=== PATIENT | female | born 1950 | race Caucasian/White ===

== ENCOUNTER 2018-01-04 02:19 | Inpatient (IN) ==
--- NOTE | 2018-01-04 03:00 | ED ---
HPI General Chief complaint: Head Injury Stated complaint: Transfer [facility] Time Seen by Provider: 01/04/18 02:23 Source: patient Mode of arrival: EMS Limitations: no limitations History of Present Illness HPI Narrative: The patient is a 67-year-old female who presents to the emergency department from [facility] as a trauma transfer. The patient is currently living in a rehabilitation center, apparently rolled out of bed earlier tonight. The patient was seen in the emergency department and noted to have an intraparenchymal hemorrhage and a small subarachnoid hemorrhage. The patient was on Coumadin and was administered [facility] at the hospital. The patient does complain of right periorbital swelling with mild headache as well as right wrist pain. The patient does have a history of poor vision secondary to a previous stroke per her report and she states she is unable to drive and has difficulty reading secondary to her poor vision, which is chronic. She does complain of a mild headache and right wrist pain but denies any neck pain, chest pain, shortness breath, nausea, vomiting, or abdominal pain.The patient is a dialysis patient and goes Mondays, Wednesdays, and Fridays. The patient had dialysis on Monday.The patient is a dialysis patient and goes Mondays, Wednesdays, and Fridays. The patient had dialysis on Monday. Related Data Home Medications Medication Instructions Recorded Confirmed carvedilol [Coreg] 25 mg PO BID 01/04/18 01/04/18 escitalopram oxalate [Lexapro] 20 mg PO DAILY 01/04/18 01/04/18 gabapentin [Neurontin] 400 mg PO BID 01/04/18 01/04/18 levothyroxine [Synthroid] 150 mcg PO DAILY 01/04/18 01/04/18 megestrol [Megace ES] 625 mg PO DAILY 01/04/18 01/04/18 omeprazole magnesium [Prilosec] 40 mg PO DAILY 01/04/18 01/04/18 sevelamer carbonate [Renvela] 800 mg PO TID 01/04/18 01/04/18 torsemide [Demadex] 20 mg PO DAILY 01/04/18 01/04/18 Allergies Allergy/AdvReac Type Severity Reaction Status Date / Time atorvastatin [From Lipitor] Allergy Rash, Verified 01/04/18 02:24 Generalized cefuroxime [From Ceftin] Allergy Rash, Verified 01/04/18 02:24 Generalized Sulfa (Sulfonamide Allergy Rash, Verified 01/04/18 02:24 Antibiotics) Generalized Review of Systems ROS: all other systems reviewed are negative [facility] Medical History Medical History CAD (coronary artery disease) (Acute) COPD (chronic obstructive pulmonary disease) (Acute) CVA (cerebral vascular accident) (Acute) Diabetes mellitus (Acute) Hypertension (Acute) Hypothyroidism (Acute) Surgical History Surgical History Hx of CABG (Acute) Stented coronary artery (Acute) Social History Social History Second Hand Smoke Exposure: No Smoking Status: Never smoker How Often Do You Have a Drink Containing Alcohol: Never Recent Travel in [facility] within the Last 8 Weeks: No Recent Out of Country Travel within the Last 8 Weeks: No Immunization History Tetanus Immunization: >5 Years Hx Influenza Vaccine This Season: No Exam Narrative Exam Narrative: GENERAL: Awake, alert, pleasant 67-year-old female who appears her stated age is in no acute respiratory distress. SKIN: Focused skin assessment warm/dry. Large skin tear to the proximal right forearm. HEAD: Large right periorbital hematoma with ecchymosis. EYES: Pupils are 2 mm bilateral. Patient has difficulty seeing fingers at a distance of 2 feet from both eyes. EOMs are intact. ENT: No nasal bleeding or discharge. Mucous membranes pink and moist. NECK: Trachea midline. No JVD. No tenderness of the cervical vertebrae. CARDIOVASCULAR: Regular rate and rhythm. No murmur appreciated. Well-healed midline scar. RESPIRATORY: No accessory muscle use. Clear to auscultation. Breath sounds equal bilaterally. GASTROINTESTINAL: Abdomen soft, non-tender, nondistended. Back: No tenderness over the thoracic or lumbar vertebrae. MUSCULOSKELETAL: Right wrist tenderness with limited range of motion. Swelling around the right wrist noted. Left forearm AV fistula with positive thrill. Patient is able to flex the hips and knees bilaterally. NEUROLOGICAL: Awake and alert. No obvious cranial nerve deficits. Motor grossly within normal limits. Normal speech. Patient is oriented to person, place, month, year, and tool liaison. PSYCHIATRIC: Appropriate mood and affect; insight and judgment normal. Course Initial Documented Vital Signs Temperature 98.2 F 01/04/18 02:26 Pulse Rate 78 01/04/18 02:26 Blood Pressure 187/79 H 01/04/18 02:26 Pulse Oximetry 99 01/04/18 02:26 Last Documented Vital Signs Temperature 98.2 F 01/04/18 02:26 Pulse Rate 78 01/04/18 02:26 Blood Pressure 187/79 H 01/04/18 02:26 Pulse Oximetry 99 01/04/18 02:26 Medical Decision Making MDM Narrative Medical decision making narrative: deformity and tenderness.IV had been established at [facility] prior to arrival. The patient Arty received [facility]. I did evaluate the patient's abrasion to the right forearm, she had a nonadherent dressing applied. An x-ray of the right wrist was obtained secondary to deformity of the right wrist with tenderness. I reviewed the paperwork from [facility], the patient had a CT the brain which revealed punctate focus of intraparenchymal hemorrhage within the left frontal lobe with associated small amount of subarachnoid hemorrhage in the left frontal lobe. Diffuse cerebral atrophy present consistent with the patient's age. Patchy hypoattenuation of the deep white matter which is nonspecific, but most likely owing to chronic small vessel ischemic change in a patient of this age group. Small amount of subarachnoid hemorrhage along the sylvian fissure on the left is present. Suggestive small amount of hemorrhage along the body of the corpus callosum/body of the right lateral ventricle. CBC revealed white count 6.2, hemoglobin 12.9, hematocrit 38.2, platelet count of 265 PT 24.4, INR 2.2, APTT 43.6 Sodium 137, potassium 4.3, chloride 98, CO2 26, anion gap 18, BUN 20, creatinine 3.28, glucose 266, calcium 9.2 X-ray of the right wrist reveals a fracture with displacement. The patient was placed in a sugar tong splint. I discussed the patient with the trauma surgeon who agrees with admission to the intensive surgical care unit. A routine consultation for orthopedics will be placed. The trauma surgeon stated the patient could have clear liquids, she is a dialysis patient, therefore, IV fluids are KVO. Medical Screen Exam Complete: Yes Emergency Medical Condition: Yes Imaging Data Radiologist's impression: Chest X-Ray 01/04/18 02:44 CONCLUSION: No acute cardiopulmonary process. Wrist X-Ray 01/04/18 02:44 CONCLUSION: Distal radial and ulnar fractures. Discharge Plan Discharge Disposition Patient Disposition: 30 Still Patient Discharge Condition Condition: Stable Discharge Details Diagnosis: Traumatic cerebral intraparenchymal hemorrhage, Subarachnoid hemorrhage, Closed fracture of right wrist Physicians Team ED Provider: Curtis Cuevas Primary Care Provider: UNKNOWN, Rxs /Orders / Referrals /Forms Prescriptions: No Action carvedilol [Coreg] 25 mg Tablet 25 mg PO BID RF: 0 torsemide [Demadex] 20 mg Tablet 20 mg PO DAILY RF: 0 gabapentin [Neurontin] 800 mg Tablet 400 mg PO BID RF: 0 levothyroxine [Synthroid] 150 mcg Tablet 150 mcg PO DAILY RF: 0 escitalopram oxalate [Lexapro] 5 mg Tablet 20 mg PO DAILY RF: 0 megestrol [Megace ES] 625 mg/5 mL Suspension 625 mg PO DAILY RF: 0 sevelamer carbonate [Renvela] 800 mg Tablet 800 mg PO TID RF: 0 omeprazole magnesium [Prilosec] 10 mg Susp,Delayed Release For Recon 40 mg PO DAILY RF: 0 Status ED Status: Pending Admission
--- NOTE | 2018-01-04 03:23 | XR ---
EXAM DATE: 01/04/2018 3:07 AM EDT AGE/SEX: 67 years / Female INDICATIONS: Chest pain from trauma as patient fell out of bed tonight. Trauma transfer. CLINICAL DATA: This is the patient's initial encounter. Patient reports that signs and symptoms have been present for 1 day and indicates a pain score of 8/10. MEDICAL/SURGICAL HISTORY: Hypertension. Diabetes. Myocardial infarction. CABG. COMPARISON: No prior exams available for comparison. FINDINGS: A single AP view of the chest demonstrates the lungs to be symmetrically aerated without evidence of mass, infiltrate or effusion. The cardiomediastinal contours are unremarkable. The patient is statu s post sternotomy. Osseous structures are intact. CONCLUSION: No acute cardiopulmonary process. Electronically signed by: Rell Cisneros MD 01/04/2018 3:22 AM EDT
--- NOTE | 2018-01-04 03:24 | XR ---
EXAM DATE: 01/04/2018 3:10 AM EDT AGE/SEX: 67 years / Female INDICATIONS: Right wrist pain from a fall trauma. Trauma transfer. CLINICAL DATA: This is the patient's initial encounter. Patient reports that signs and symptoms have been present for 1 day and indicates a pain score of 10/10. MEDICAL/SURGICAL HISTORY: Hypertension. Diabetes. Myocardial infarction. CABG. COMPARISON: No prior exams available for comparison. FINDINGS: There is fracturing at the distal radius with dorsal displacement and angulation of the distal radial fragment. There also appears to be a fracture through the distal medial aspect of the ulna. The bone s are osteopenic. There is soft tissue swelling. CONCLUSION: Distal radial and ulnar fractures. Electronically signed by: Rell Cisneros MD 01/04/2018 3:23 AM EDT
[2018-01-04] MEDS ORDERED: Morphine Inj 4 MG/ML Vial IV.PUSH ONE (03:29)
[2018-01-04] MEDS ORDERED: Morphine Inj 4 MG/ML Vial IV.PUSH PRN ×2 (06:18→07:15)
[2018-01-04] MEDS ORDERED: Acetaminophen 325 MG Tablet PO PRN ×2 (06:25→21:09)
[2018-01-04] MEDS ORDERED: Post-op Orders (for Pharmacy) OTHER ONE (07:15)
[2018-01-04] MEDS ORDERED: Naloxone Inj 0.4 MG/ML Vial IV.PUSH PRN (07:15)
[2018-01-04] MEDS ORDERED: Bisacodyl 10 MG Supp RECTAL PRN (07:15)
--- NOTE | 2018-01-04 07:35 | P.CONOP ---
[facility] Orthopedics Consult Note - [facility] Consult date: 01/04/18 Chief complaint: Subarachnoid & Intraparenchymal Hem, Rt Wrist Fx Narrative: Caryl is a 67-year-old female. She lives in [place] and and lives in a adult living facility. She rolled out of bed earlier tonight. She hit her head and her right wrist. She was initially taken to [facility]. She was subsequently transferred to [facility]. She is found to have a subarachnoid hemorrhage and intraparenchymal hemorrhage. She does not clearly recall the fall. She complains of pain around her face and her right wrist. She states that she had a fall approximately 2 months ago resulting in right distal radius fracture. She has been seeing Dr. Jay in [place]. She has been treated nonsurgically. Her wrist pain is worse with movement and improved with rest. She also has renal failure and is on dialysis. Review of Systems Patient denies fevers, chills, weight loss, headache, visual changes, hearing loss, chest pain, palpitations, shortness of breath, nausea, vomiting, no urinary changes, diarrhea, bowel changes, neck pain, back pain, skin rashes, weakness of extremities, easy bleeding, enlarged lymph nodes, numbness of extremities, anxiety, or depression. All other systems reviewed negative except as stated in [facility] - History History Provided By: Patient - Medical History Medical History: Medical History (Last Updated 01/04/18 @ 02:29 by Hemant Romeo) CAD (coronary artery disease) COPD (chronic obstructive pulmonary disease) CVA (cerebral vascular accident) Diabetes mellitus Hypertension Hypothyroidism - Surgical History Surgical History: Surgical History (Last Updated 01/04/18 @ 02:29 by Heamnt Romeo) Hx of CABG Stented coronary artery - Tobacco History Second Hand Smoke Exposure: No Smoking Status: Never smoker - Alcohol History How Often Do You Have a Drink Containing Alcohol: Never - Travel History Recent Travel in the [place] Within the Last 8 Weeks: No Recent Travel Out of the Country Within the Last 8 Weeks: No - Immunization History Tetanus Immunization: >5 Years Hx Influenza Vaccine This Season: No Medications and Allergies Active Medications: Active Medications Acetaminophen (Tylenol) 650 mg PO Q6H PRN PRN Reason: TEMPERATURE > 101 F Al Hydroxide/Mg Hydroxide (Milk Of Magnesia Liq) 30 ml PO Q12H PRN PRN Reason: Mild Constipation Bisacodyl (Dulcolax Supp) 10 mg RECTAL DAILY PRN PRN Reason: SEVERE CONSITIPATION Enalaprilat (Vasotec Inj) 1.25 mg IV.PUSH Q8H PRN PRN Reason: Blood pressure 180/95 Sodium Chloride (Ns Inj) 1,000 mls @ 100 mls/hr IV.CONT .Q10H DARRON Lactulose (Lactulose Liq) 30 ml PO DAILY PRN PRN Reason: SEVERE CONSITIPATION Miscellaneous Information (Misc Post-Op Orders (For Pharmacy)) 0 each OTHER STAT ONE Stop: 01/04/18 07:16 Morphine Sulfate (Morphine Inj) 4 mg IV.PUSH Q4H PRN PRN Reason: BREAKTHROUGH PAIN Morphine Sulfate (Morphine Inj) 2 mg IV.PUSH Q3H PRN PRN Reason: PAIN 6-10;IF UNABLE TO TAKE PO Naloxone HCl (Narcan Inj) 0.4 mg IV.PUSH UNSCH PRN PRN Reason: SEE LABEL COMMENTS Ondansetron HCl (Zofran Inj) 4 mg IV.PUSH Q6H PRN PRN Reason: NAUSEA OR VOMITING Ondansetron HCl (Zofran Inj) 4 mg IV.PUSH Q6H PRN PRN Reason: NAUSEA OR VOMITING Oxycodone HCl (Roxicodone) 10 mg PO Q4H PRN PRN Reason: Pain 6-10 Oxycodone HCl (Roxicodone) 5 mg PO Q4H PRN PRN Reason: Pain 1-5 Oxycodone/Acetaminophen (Percocet 5/325 Mg) 1 tab PO Q6H PRN PRN Reason: PAIN SCALE 3 TO 5 Pantoprazole Sodium (Protonix Inj) 40 mg IV.PUSH Q24H DARRON Pantoprazole Sodium (Protonix) 40 mg PO DAILY DARRON Senna/Docusate Sodium ([place]-Colace) 1 tab PO BID DARRON Senna/Docusate Sodium ([place]-Colace) 1 tab PO BID DARRON Sennosides (Senokot) 17.2 mg PO Q12H PRN PRN Reason: Moderate Constipation Sodium Chloride (Ns Flush) 2 ml IV.FLUSH UNSCH PRN PRN Reason: FLUSH AFTER USING IV ACCESS Allergies Allergy/AdvReac Type Severity Reaction Status Date / Time atorvastatin [From Lipitor] Allergy Rash, Verified 01/04/18 02:24 Generalized cefuroxime [From Ceftin] Allergy Rash, Verified 01/04/18 02:24 Generalized Sulfa (Sulfonamide Allergy Rash, Verified 01/04/18 02:24 Antibiotics) Generalized Home Medications Medication Instructions Recorded Confirmed Type carvedilol [Coreg] 25 mg PO BID 01/04/18 01/04/18 History escitalopram oxalate [Lexapro] 20 mg PO DAILY 01/04/18 01/04/18 History gabapentin [Neurontin] 400 mg PO BID 01/04/18 01/04/18 History levothyroxine [Synthroid] 150 mcg PO DAILY 01/04/18 01/04/18 History megestrol [Megace ES] 625 mg PO DAILY 01/04/18 01/04/18 History omeprazole magnesium [Prilosec] 40 mg PO DAILY 01/04/18 01/04/18 History sevelamer carbonate [Renvela] 800 mg PO TID 01/04/18 01/04/18 History torsemide [Demadex] 20 mg PO DAILY 01/04/18 01/04/18 History Exam Vital signs: Vital Signs 01/04/18 02:26 01/04/18 03:30 01/04/18 04:30 Temperature 98.2 F Pulse Rate 78 78 86 Respiratory Rate 18 18 Blood Pressure 187/79 H 175/78 H 201/90 H Pulse Oximetry 99 96 01/04/18 05:30 01/04/18 05:58 Temperature Pulse Rate 76 80 Respiratory Rate 18 16 Blood Pressure 182/80 H 151/66 H Pulse Oximetry 96 98 Intake & Output 01/03/18 01/04/18 01/04/18 18:59 06:59 18:59 Weight 80 kg Narrative: Caryl is a pleasant 67-year-old female. She is awake and alert. She appears well-developed well-nourished. General: Awake and alert. No acute distress. Appears well-developed well- nourished Head: Patient has a large contusion around her right eye. Pupils are equal Neck: Soft, nontender, trachea midline Abdomen: Soft, nondistended Examination of right arm reveals no pain with shoulder she has mild tenderness over her distal radius. Skin is intact. Radial pulses palpable. Sensation is intact in radial, ulnar, and median nerve distributions. She has pain with any wrist motion. She has mild swelling of her wrist and fingers. Examination of left arm reveals no pain or deformity with shoulder, elbow, or wrist motion. Skin is intact. Radial pulse is palpable. Normal capillary refill in fingers. Sensation is intact in radial, ulnar, and median nerve distributions. Classified Ad Taker strength is +5 bilaterally. No lymphadenopathy noted. Examination of bilateral lower extremities reveals no pain or deformity with hip , knee, or ankle motion. Skin is intact. Sensation is intact in both feet. Dorsalis pedis pulses are palpable. Normal capillary refill and feet. Thigh and calf compartments are soft. No lymphadenopathy noted. +5 strength of ankle dorsiflexion and plantarflexion. Results - Labs Labs: Laboratory Results - last 24 hr 01/04/18 06:48 POC Glucose 138 H - Diagnostic results Imaging: Impressions Chest X-Ray 01/04/18 02:44 CONCLUSION: No acute cardiopulmonary process. Wrist X-Ray 01/04/18 02:44 CONCLUSION: Distal radial and ulnar fractures. Wrist/Hand x-ray: report reviewed, image reviewed Assessment and Plan - Problem List (1) Closed fracture of right wrist Code(s): S62.101A - Fracture of unspecified carpal bone, right wrist, initial encounter for closed fracture Status: Acute Qualifiers: Encounter type: initial encounter Qualified Code(s): S62.101A - Fracture of unspecified carpal bone, right wrist, initial encounter for closed fracture (2) Traumatic cerebral intraparenchymal hemorrhage Code(s): S06.369A - Traumatic hemorrhage of cerebrum, unspecified, with loss of consciousness of unspecified duration, initial encounter Status: Acute Qualifiers: Encounter type: initial encounter Laterality: unspecified laterality Loss of consciousness presence/duration: without LOC Qualified Code(s): S06.360A - Traumatic hemorrhage of cerebrum, unspecified, without loss of consciousness, initial encounter (3) Subarachnoid hemorrhage Code(s): I60.9 - Nontraumatic subarachnoid hemorrhage, unspecified Status: Acute - Assessment and Plan Caryl has an intracranial hemorrhage. She also has a right distal radius fracture. She initially fractured her right wrist approximately 2 months ago. This is been treated nonsurgically by Dr. Jay in [place]. She does have significant shortening and angular deformity. Treatment options were discussed in depth with patient. The risk and benefits of surgery were discussed in depth with patient. The risk of surgery include bleeding, infection, injuries to arteries, nerves, or blood vessels, infection, wound complications, nonunion, malunion, painful hardware, and need for further surgery. I also discussed medical complications including blood clots, pneumonia, stroke, heart attack, and . She would like to proceed with nonsurgical treatment She will be placed into a splint. Follow-up with Dr. Jay, orthopedics, in [place] in 1-2 weeks for repeat x- rays and exam Patient may be discharged home when cleared by neurosurgery. All questions were answered.
[2018-01-04 07:49] LABS: Baso # (Auto) 0.1 th/mm3 (0.0-0.2); Baso % (Auto) 0.6 % (0.0-2.0); Eos # (Auto) 0.1 th/mm3 (0.0-0.4); Eos % (Auto) 1.6 % (0.0-4.0); Hematocrit 37.7 % (35.0-46.0); Hemoglobin 12.4 gm/dL (11.6-15.3); Lymph # (Auto) 1.5 th/mm3 (1.0-4.8); Lymph % (Auto) 18.4 % (9.0-44.0); Mean Corpuscular HGB Conc 32.8 % (32.0-36.0); Mean Corpuscular Hemoglobin 29.2 pg (27.0-34.0); Mean Corpuscular Volume 89.2 fL (80.0-100.0); Mean Platelet Volume 7.8 fL (7.0-11.0); Mono # (Auto) 0.8 th/mm3 (0.0-0.9); Mono % (Auto) 9.4 % (0.0-8.0); Neut # (Auto) 5.6 th/mm3 (1.8-7.7); Platelet Count 285 th/mm3 (150-450); Red Blood Count 4.23 mil/mm3 (4.00-5.30); Red Cell Distribution Width 19.5 % (11.6-17.2)
[2018-01-04] MEDS: Pantoprazole Inj 40 MG Vial IV.PUSH SCH (07:50)
[2018-01-04] MEDS: Sod Chloride 0.9% Inj 1,000 ML IV.CONT SCH ×2 (07:51→16:21)
--- NOTE | 2018-01-04 07:56 | CT ---
EXAM DATE: 01/04/2018 7:43 AM EDT AGE/SEX: 67 years / Female INDICATIONS: Trauma, F/U intracranial hemorrhage. CLINICAL DATA: This is the patient's subsequent encounter. Patient reports that signs and symptoms h ave been present for 1 day and indicates a pain score of 0/10. MEDICAL/SURGICAL HISTORY: Hypertension. Cardiovascular disease. Cerebrovascular disease. CABG. RADIATION DOSE: 56.35 CTDI (mGy) COMPARISON: No prior exams available for comparison. EXTERNAL: CT Brain/[employer] 2018-01-03 TECHNIQUE: CT of the head without contrast. Using automated exposure control and adjustment of the mA and/or kV according to patient size, radiation dose was kept as low as reasonably achievable to ob tain optimal diagnostic quality images. DICOM format image data is available electronically for revi ew and comparison. FINDINGS: Cerebrum: There is small amount of subarachnoid hemorrhage in the left anterior frontal and right po sterior frontal high convexities. Linear region of increased density extending towards the right late ral ventricle likely reflects calcification as there is no intraventricular hematocrit level. Encepha lomalacia defect in the right occipital lobe and to lesser degree left occipital lobe. Small hypodens ities in the thalami bilaterally. Prominent diffuse cerebral atrophy out of proportion to age. The ve ntricles are normal for degree of atrophy. No evidence of midline shift or acute infarction. Posterior Fossa: The cerebellum and brainstem are intact. The 4th ventricle is midline. The cerebe llopontine angle is unremarkable. Extracranial: The visualized portion of the orbits is intact. Right frontal scalp hematoma. Skull: The calvaria is intact. No evidence of skull fracture. CONCLUSION: 1. Small amount of subarachnoid hemorrhage in the frontal high convexities. 2. Suspect focal region of calcification in the right lateral ventricle rather than focal hemorrhage . This can be monitored on follow-up imaging. 3. Remote right occipital, right greater than left, infarcts. 4. Remote bilateral thalamic lacunar infarcts. 5. Prominent cerebral atrophy out of proportion to age. . Electronically signed by: Xavier Faulkner MD 01/04/2018 7:54 AM EDT
[2018-01-04 08:13] LABS: Calcium 9.4 mg/dL (8.5-10.1); Carbon Dioxide 24.4 meq/L (21.0-32.0); Potassium 4.3 meq/L (3.5-5.1)
[2018-01-04] MEDS ORDERED: Senna/Docusate Sodium 8.6/50 MG Tablet PO SCH (09:00)
[2018-01-04] MEDS: Senna/Docusate Sodium 8.6/50 MG Tablet PO SCH ×2 (10:03→22:27)
--- NOTE | 2018-01-04 10:57 | US ---
EXAM DATE: 01/04/2018 10:47 AM EDT AGE/SEX: 67 years / Female INDICATIONS: Cerebral vascular accident. CLINICAL DATA: This is the patient's initial encounter. Patient reports that signs and symptoms have been present for 1 day and indicates a pain score of 0/10. MEDICAL/SURGICAL HISTORY: Chronic obstructive pulmonary disease. Diabetes. Hypothyroidism. C oronary artery disease. HTN. Intraparenchymal hemorrhage.Small subarachnoid hemorrhage. Dialysis. RT wrist fracture. CABG. Cardiac cath with stent. COMPARISON: No prior exams available for comparison. VELOCITY PARAMETERS: ICA/CCA Ratio: Right 1.3 , Left 1.1 ICA: Right 116.8 cm/sec, Left 116.0 cm/sec CCA: Right 92.4 cm/sec, Left 109.2 cm/sec ECA: Right 247.0 cm/sec, Left 147.5 cm/sec Vertebral: Right 58.0 cm/sec antegrade, Left 41.7 cm/sec antegrade FINDINGS: Right Carotid: Bulky calcified plaque extending from the bulb to the origin of the internal carotid artery.The waveforms are within normal limits. Left Carotid: Bulky calcified plaque extending from the bulb to the origin of the internal carotid a rtery. The waveforms are within normal limits. Other: None. CONCLUSION: 1. Right Internal Carotid Artery: Bulky calcified plaque with mild, less than 50%, stenosis. 2. Left Internal Carotid Artery: Bulky calcified plaque with moderate, 50-69%, stenosis based on gra yscale imaging. Electronically signed by: Xavier Faulkner MD 01/04/2018 10:56 AM EDT
[2018-01-04] MEDS ORDERED: MEGESTROL PO SCH (12:00)
[2018-01-04] MEDS: Gabapentin 400 MG Capsule PO SCH ×2 (13:25→22:27)
[2018-01-04] MEDS: Carvedilol 12.5 MG Tablet PO SCH ×2 (13:26→22:27)
--- NOTE | 2018-01-04 14:04 | MH ---
cc: Sandra Jacinto MD DATE OF ADMISSION: 01/04/2018 ADMITTING DIAGNOSES: Traumatic brain injury and right wrist fracture. HISTORY OF PRESENT ILLNESS: This 67-year-old female was transferred to [facility], where she was initially admitted to the ER because she fell out of bed in the rehab center. I was requested to accept the patient, who was readily accommodated. The patient arrives about 8 hours later to the emergency room and is noted to be awake and alert, with mild headache and wrist pain. The patient states that she fell on the bed in the [facility] and has had pain since. She also stated that she could barely see anything and so it was easy to trip, and she had multiple falls in the recent past. The patient is now being admitted to our department. Initial workup from [place] was reviewed by emergency room physician and by myself. PAST MEDICAL HISTORY: Coronary artery disease, COPD, previous 3 or 4 strokes, diabetes mellitus, hypertension, hypothyroidism. PAST SURGICAL HISTORY: Coronary artery stenting and coronary artery bypass surgery. SOCIAL HISTORY: The patient has never smoked and never drank. PHYSICAL EXAMINATION: GENERAL: Reveals a 67-year-old female with normocephalic trauma to the head consisting of raccoon's eyes on the right and periorbital swelling and suffusion of blood. Pupils are equal and reactive. Extraocular muscles are intact. The patient states that she has very poor vision, which is consistent with her strokes in the past. NECK: Bilateral carotid pulses and bilateral faint bruits. CHEST: Bilateral breath sounds, decreased over both lung sawant. HEART: Regular rate and rhythm. ABDOMEN: Soft. Active bowel sounds. No rebound, no guarding, no masses. EXTREMITIES: The patient has a thin extremities, somewhat atrophic. Bilateral femoral, popliteal, dorsalis pedis, and posterior tibial pulses, and bilateral brachial, ulnar, and radial pulses. There is swelling around the right wrist and motion causes pain. RADIOLOGY REPORT: X-ray was performed, which reveals ulnar/radial fracture at the level of the wrist. The patient has AV fistula in the left arm for dialysis. She is being dialyzed every Monday, Monday, and Monday. NEUROLOGIC: The patient is actually fully intact. She is oriented x3. Alicia coma scale is 15. Motor and sensory are fully intact. As noted, her vision is very poor. IMPRESSION AND PLAN: A 67-year-old female with bilateral frontal subarachnoid bleeding and a number of old lacunar infarcts over the basal ganglia and thalamus. Laboratory studies reveal an INR of 2 and a PT of 24. The patient has been given apparently [employer] and trauma surgery will be admitting the patient. MD JERSON Solis/lauren , 01:26 PM , 01:38 PM
[2018-01-04] MEDS: Torsemide 20 MG Tablet PO SCH (15:27)
[2018-01-04] MEDS: Levothyroxine 75 MCG Tablet PO SCH (15:29)
[2018-01-04] MEDS: Megestrol Acetate Liq 400 MG/10 ML UDC PO SCH (17:54)
[2018-01-04 18:23] LABS: INR 1.1 Ratio
--- NOTE | 2018-01-04 20:09 | CT ---
EXAM DATE: 01/04/2018 7:58 PM EDT AGE/SEX: 67 years / Female INDICATIONS: Altered mental status. CLINICAL DATA: This is the patient's initial encounter. Patient reports that signs and symptoms have been present for 1 day and indicates a pain score of 0/10. MEDICAL/SURGICAL HISTORY: Cardiovascular disease. Chronic obstructive pulmonary disease. Cerebrov ascular disease. Diabetes, Hypertension. None. RADIATION DOSE: 62.48 CTDI (mGy) COMPARISON: [facility] [place], CT HEAD W/O CONTRAST, 01/04/2018. . TECHNIQUE: CT of the head without contrast. Using automated exposure control and adjustment of the mA and/or kV according to patient size, radiation dose was kept as low as reasonably achievable to ob tain optimal diagnostic quality images. DICOM format image data is available electronically for revi ew and comparison. FINDINGS: Cerebrum: The ventricles are normal for age. Diffuse, symmetric and stable cortical atrophy. Small amount of subarachnoid hemorrhage over the left frontal convexity and left frontal subarachnoid space is basically unchanged. Questionable punctate area of increased density above the right lateral vent ricle is less prominent on the current exam and may represent resolving parenchymal hemorrhage. Stabl e scattered areas of deep white matter tracts small vessel ischemic demyelination. Old punctate lacun ar type infarct in the right thalamus. Bibasilar occipital infarcts, right greater than left No extr aaxial fluid collections are seen. Posterior Fossa: The cerebellum and brainstem are intact. The 4th ventricle is midline. The cerebe llopontine angle is unremarkable. Extracranial: The visualized portion of the orbits is intact. Preseptal swelling over the right glob e with a stable dense hematoma adjacent to the lateral right orbital wall. Skull: The calvaria is intact. No evidence of skull fracture. CONCLUSION: 1. Small amount of subarachnoid hemorrhage over the left frontal convexity is basically stable. 2. Punctate area of increased density over the right lateral ventricle is less prominent when compar ed to the prior exam may represent resolving parenchymal hemorrhage. 3. Stable chronic changes with bioccipital infarcts, right greater than left, old right thalamic inf arct and scattered areas of deep white matter tracts small vessel ischemic demyelination. Stable, sym metric cortical atrophy. . Electronically signed by: Jordi Carpenter MD 01/04/2018 8:08 PM EDT
[2018-01-04] MEDS ORDERED: Albumin Human 25% Inj 100 ML IV.SIG PRN (21:04)
[2018-01-04] MEDS ORDERED: Sod Chloride 0.9% Inj 1,000 ML OTHER PRN ×2 (21:09)
[2018-01-04] MEDS ORDERED: Sod Chloride 0.9% Inj 1,000 ML IV.CONT PRN (21:09)
[2018-01-04] MEDS ORDERED: Gelatin 12 MM/7 MM Topical Foam TOPICAL PRN (21:09)
[2018-01-04] MEDS ORDERED: Heparin 10,000 UNITS/10 ML Vial (for IV use) OTHER PRN (21:09)
--- NOTE | 2018-01-04 21:16 | P.CONNP ---
History of Present Illness Service: Nephrology Consult date: 01/04/18 Requesting Physician: Sandra Jacinto Reason for Consult: End-stage renal disease Primary Care Provider: UNKNOWN History of Present Illness: 57-year-old white female with history of fall, she gives history of diabetes, hypertension, end-stage renal disease patient was transferred from [facility] to have affected head injury and subarachnoid hemorrhage, she has injured her right eye and is bruising, right wrist fracture patient has left forearm AV fistula and goes on dialysis on Monday, Monday and Monday, she denies any chest pain or shortness of breath. Review of Systems Constitutional: Reports lack of energy Eyes: Reports blurry vision, Reports other (Large bruise on the right side) Cardiovascular: Reports foot swelling Respiratory: Reports shortness of breath with activity Gastrointestinal: Reports change in stools Genitourinary: Reports urinary urgency Musculoskeletal: Reports body aches Neurologic: Reports abnormal walking Psychiatric: Reports anxiety PMFSH - History History Provided By: Patient - Medical History Medical History: Medical History (Last Reviewed 01/04/18 @ 10:50 by Samina Ellis) CAD (coronary artery disease) COPD (chronic obstructive pulmonary disease) CVA (cerebral vascular accident) Diabetes mellitus Hypertension Hypothyroidism - Surgical History Surgical History: Surgical History (Last Reviewed 01/04/18 @ 10:50 by Samina Ellis) Hx of CABG Stented coronary artery - Tobacco History Second Hand Smoke Exposure: No Smoking Status: Never smoker - Alcohol History How Often Do You Have a Drink Containing Alcohol: Never - Travel History Recent Travel in the [place] Within the Last 8 Weeks: No Recent Travel Out of the Country Within the Last 8 Weeks: No - Immunization History Tetanus Immunization: >5 Years Hx Influenza Vaccine This Season: No Medications and Allergies Active Medications: Active Medications Acetaminophen (Tylenol) 650 mg PO Q6H PRN PRN Reason: TEMPERATURE > 101 F Al Hydroxide/Mg Hydroxide (Milk Of Magnesia Liq) 30 ml PO Q12H PRN PRN Reason: Mild Constipation Bisacodyl (Dulcolax Supp) 10 mg RECTAL DAILY PRN PRN Reason: SEVERE CONSITIPATION Carvedilol (Coreg) 25 mg PO BID [facility] Last Admin: 01/04/18 13:26 Dose: 25 mg Enalaprilat (Vasotec Inj) 1.25 mg IV.PUSH Q8H PRN PRN Reason: Blood pressure 180/95 Escitalopram Oxalate (Lexapro) 20 mg PO DAILY [facility] Last Admin: 01/04/18 13:27 Dose: 20 mg Gabapentin (Neurontin) 400 mg PO BID [facility] Last Admin: 01/04/18 13:25 Dose: 400 mg Sodium Chloride (Ns Inj) 1,000 mls @ 100 mls/hr IV.CONT .Q10H [facility] Last Admin: 01/04/18 16:21 Dose: 100 mls/hr Albumin Human (Flexbumin 25% Inj) 100 mls @ 60 mls/hr IV.SIG WITH DIALYSIS PRN PRN Reason: hypotension / volume replace Lactulose (Lactulose Liq) 30 ml PO DAILY PRN PRN Reason: SEVERE CONSITIPATION Levothyroxine Sodium (Synthroid) 150 mcg PO DAILY@0600 [facility] Last Admin: 01/04/18 15:29 Dose: 150 mcg Megestrol Acetate (Megace Liq) 400 mg PO DAILY [facility] Last Admin: 01/04/18 17:54 Dose: Not Given Morphine Sulfate (Morphine Inj) 4 mg IV.PUSH Q4H PRN PRN Reason: BREAKTHROUGH PAIN Morphine Sulfate (Morphine Inj) 2 mg IV.PUSH Q3H PRN PRN Reason: PAIN 6-10;IF UNABLE TO TAKE PO Naloxone HCl (Narcan Inj) 0.4 mg IV.PUSH UNSCH PRN PRN Reason: SEE LABEL COMMENTS Ondansetron HCl (Zofran Inj) 4 mg IV.PUSH Q6H PRN PRN Reason: NAUSEA OR VOMITING Oxycodone HCl (Roxicodone) 10 mg PO Q4H PRN PRN Reason: Pain 6-10 Oxycodone HCl (Roxicodone) 5 mg PO Q4H PRN PRN Reason: Pain 1-5 Oxycodone/Acetaminophen (Percocet 5/325 Mg) 1 tab PO Q6H PRN PRN Reason: PAIN SCALE 3 TO 5 Pantoprazole Sodium (Protonix Inj) 40 mg IV.PUSH Q24H [facility] Last Admin: 01/04/18 07:50 Dose: 40 mg Pantoprazole Sodium (Protonix) 40 mg PO DAILY [facility] Last Admin: 01/04/18 10:03 Dose: 40 mg Senna/Docusate Sodium (America-Colace) 1 tab PO BID [facility] Last Admin: 01/04/18 10:03 Dose: Not Given Sennosides (Senokot) 17.2 mg PO Q12H PRN PRN Reason: Moderate Constipation Sevelamer Carbonate (Renvela) 800 mg PO TID [facility] Last Admin: 01/04/18 17:54 Dose: 800 mg Sodium Chloride (Ns Flush) 2 ml IV.FLUSH UNSCH PRN PRN Reason: FLUSH AFTER USING IV ACCESS Torsemide (Demadex) 20 mg PO DAILY [facility] Last Admin: 01/04/18 15:27 Dose: 20 mg Allergies Allergy/AdvReac Type Severity Reaction Status Date / Time atorvastatin [From Lipitor] Allergy Rash, Verified 01/04/18 02:24 Generalized cefuroxime [From Ceftin] Allergy Rash, Verified 01/04/18 02:24 Generalized Sulfa (Sulfonamide Allergy Rash, Verified 01/04/18 02:24 Antibiotics) Generalized Home Medications Medication Instructions Recorded Confirmed Type carvedilol [Coreg] 25 mg PO BID 01/04/18 01/04/18 History escitalopram oxalate [Lexapro] 20 mg PO DAILY 01/04/18 01/04/18 History gabapentin [Neurontin] 400 mg PO BID 01/04/18 01/04/18 History levothyroxine [Synthroid] 150 mcg PO DAILY 01/04/18 01/04/18 History megestrol [Megace ES] 625 mg PO DAILY 01/04/18 01/04/18 History omeprazole magnesium [Prilosec] 40 mg PO DAILY 01/04/18 01/04/18 History sevelamer carbonate [Renvela] 800 mg PO TID 01/04/18 01/04/18 History torsemide [Demadex] 20 mg PO DAILY 01/04/18 01/04/18 History Exam Vital signs: Vital Signs 01/04/18 02:26 01/04/18 03:30 01/04/18 04:30 Temperature 98.2 F Pulse Rate 78 78 86 Respiratory Rate 18 18 Blood Pressure 187/79 H 175/78 H 201/90 H Pulse Oximetry 99 96 01/04/18 05:30 01/04/18 05:58 01/04/18 08:00 Temperature 98 F Pulse Rate 76 80 73 Respiratory Rate 18 16 18 Blood Pressure 182/80 H 151/66 H 111/55 L Pulse Oximetry 96 98 98 01/04/18 12:00 01/04/18 16:00 Temperature 98.1 F 98 F Pulse Rate 77 60 Respiratory Rate 17 13 Blood Pressure 151/70 H 117/56 L Pulse Oximetry 94 L 97 Intake & Output 01/04/18 01/04/18 01/05/18 06:59 18:59 06:59 Intake Total 1720 / 1720 Output Total 200 / 200 Balance 1520 / 1520 Weight 80 kg 64.5 kg Intake: IV 1000 / 1000 NS Inj 1,000 ML @ 100 mls/hr IV 1000 / 1000 .CONT .Q10H [facility] Rx#:[id number] Oral 720 / 720 Output: Urine 200 / 200 Other: # Voids 1 - Constitutional no acute distress - Routine HEENT Exam Head: Present: abrasion, hematoma Eye: Present: proptosis (Right eye bruising and swelling) ENT: Present: mucous membranes moist - Routine Neck Exam Present: supple - Routine Respiratory Exam Present: CTA bilaterally - Routine Cardiovascular Exam Present: RRR - Routine Abdominal Exam Present: soft, normoactive bowel sounds - Routine Extremities Exam Present: AV fistula - Routine Neurological Exam Present: abnormal gait Results - Lab Results 01/04/18 07:10 01/04/18 07:10 Most recent lab results Calcium 9.4 mg/dL (8.5-10.1) 01/04/18 07:10 Assessment and Plan - Assessment (1) End-stage renal disease on hemodialysis Code(s): N18.6 - End stage renal disease; Z99.2 - Dependence on renal dialysis Status: Acute (2) Traumatic cerebral intraparenchymal hemorrhage Code(s): S06.369A - Traumatic hemorrhage of cerebrum, unspecified, with loss of consciousness of unspecified duration, initial encounter Status: Acute (3) Subarachnoid hemorrhage Code(s): I60.9 - Nontraumatic subarachnoid hemorrhage, unspecified Status: Acute (4) Closed fracture of right wrist Code(s): S62.101A - Fracture of unspecified carpal bone, right wrist, initial encounter for closed fracture Status: Acute - Plan Hemodialysis is planned for tomorrow continue Monday, Monday and Monday schedule Monitor intake and output Monitor BMP Patient is being followed by trauma surgery and neurology (2) Traumatic cerebral intraparenchymal hemorrhage Qualifiers: Encounter type: initial encounter Laterality: unspecified laterality Loss of consciousness presence/duration: without LOC Qualified Code(s): S06.360A - Traumatic hemorrhage of cerebrum, unspecified, without loss of consciousness, initial encounter (4) Closed fracture of right wrist Qualifiers: Encounter type: initial encounter Qualified Code(s): S62.101A - Fracture of unspecified carpal bone, right wrist, initial encounter for closed fracture
--- NOTE | 2018-01-04 22:36 | P.CONNS ---
History of Present Illness Service: Neurosurgery Consult date: 01/04/18 Requesting Physician: Sandra Jacinto Reason for Consult: tbi Primary Care Provider: UNKNOWN History of Present Illness: HPI General Chief complaint: Head Injury Stated complaint: Transfer [facility] Time Seen by Provider: 01/04/18 02:23 Source: patient Mode of arrival: EMS Limitations: no limitations History of Present Illness HPI Narrative: The patient is a 67-year-old female who presents to the emergency department from [facility] as a trauma transfer. The patient is currently living in a rehabilitation center, apparently rolled out of bed earlier tonight. The patient was seen in the emergency department and noted to have an intraparenchymal hemorrhage and a small subarachnoid hemorrhage. The patient was on Coumadin and was administered [facility] at the hospital. The patient does complain of right periorbital swelling with mild headache as well as right wrist pain. The patient does have a history of poor vision secondary to a previous stroke per her report and she states she is unable to drive and has difficulty reading secondary to her poor vision, which is chronic. She does complain of a mild headache and right wrist pain but denies any neck pain, chest pain, shortness breath, nausea, vomiting, or abdominal pain.The patient is a dialysis patient and goes Mondays, Wednesdays, and Fridays. The patient had dialysis on Monday.The patient is a dialysis patient and goes Mondays, Wednesdays, and Fridays. The patient had dialysis on Monday. PMFSH - History History Provided By: Patient - Medical History Medical History: Medical History (Last Reviewed 01/04/18 @ 10:50 by Samina Ellis) CAD (coronary artery disease) COPD (chronic obstructive pulmonary disease) CVA (cerebral vascular accident) Diabetes mellitus Hypertension Hypothyroidism - Surgical History Surgical History: Surgical History (Last Reviewed 01/04/18 @ 10:50 by Samina Ellis) Hx of CABG Stented coronary artery - Tobacco History Second Hand Smoke Exposure: No Smoking Status: Never smoker - Alcohol History How Often Do You Have a Drink Containing Alcohol: Never - Travel History Recent Travel in the [place] Within the Last 8 Weeks: No Recent Travel Out of the Country Within the Last 8 Weeks: No - Immunization History Tetanus Immunization: >5 Years Hx Influenza Vaccine This Season: No Medications and Allergies Active Medications: Active Medications Acetaminophen (Tylenol) 650 mg PO Q6H PRN PRN Reason: TEMPERATURE > 101 F Acetaminophen (Tylenol) 650 mg PO UNSCH PRN PRN Reason: SEE LABEL COMMENTS Al Hydroxide/Mg Hydroxide (Milk Of Magnesia Liq) 30 ml PO Q12H PRN PRN Reason: Mild Constipation Bisacodyl (Dulcolax Supp) 10 mg RECTAL DAILY PRN PRN Reason: SEVERE CONSITIPATION Carvedilol (Coreg) 25 mg PO BID [facility] Last Admin: 01/04/18 22:27 Dose: 25 mg Clonidine HCl (Catapres) 0.1 mg PO UNSCH PRN PRN Reason: SEE LABEL COMMENTS Diphenhydramine HCl (Benadryl) 25 mg PO UNSCH PRN PRN Reason: SEE LABEL COMMENTS Enalaprilat (Vasotec Inj) 1.25 mg IV.PUSH Q8H PRN PRN Reason: Blood pressure 180/95 Escitalopram Oxalate (Lexapro) 20 mg PO DAILY [facility] Last Admin: 01/04/18 13:27 Dose: 20 mg Gabapentin (Neurontin) 400 mg PO BID [facility] Last Admin: 01/04/18 22:27 Dose: 400 mg Gelatin (Gelfoam 12 Mm/7 Mm Topical) 1 foam TOPICAL PRN PRN PRN Reason: help stop bleeding from site Heparin Sodium (Porcine) (Heparin Inj) 8,000 units OTHER WITH DIALYSIS PRN PRN Reason: for machine prime Sodium Chloride (Ns Inj) 1,000 mls @ 100 mls/hr IV.CONT .Q10H [facility] Last Admin: 01/04/18 16:21 Dose: 100 mls/hr Albumin Human (Flexbumin 25% Inj) 100 mls @ 60 mls/hr IV.SIG WITH DIALYSIS PRN PRN Reason: hypotension / volume replace Sodium Chloride (Ns Inj) 1,000 mls @ 0 mls/hr OTHER .Q0M PRN PRN Reason: for prime and rinse back Sodium Chloride (Ns Inj) 1,000 mls @ 0 mls/hr IV.CONT .Q0M PRN PRN Reason: hypotension / volume replace Sodium Chloride (Ns Inj) 1,000 mls @ 200 mls/hr OTHER .Q5H PRN PRN Reason: for dialyzer flush PRN Lactulose (Lactulose Liq) 30 ml PO DAILY PRN PRN Reason: SEVERE CONSITIPATION Levothyroxine Sodium (Synthroid) 150 mcg PO DAILY@0600 [facility] Last Admin: 01/04/18 15:29 Dose: 150 mcg Mannitol (Mannitol Inj) 12.5 gm IV.PUSH UNSCH PRN PRN Reason: hypotension / volume replace Megestrol Acetate (Megace Liq) 400 mg PO DAILY [facility] Last Admin: 01/04/18 17:54 Dose: Not Given Morphine Sulfate (Morphine Inj) 4 mg IV.PUSH Q4H PRN PRN Reason: BREAKTHROUGH PAIN Morphine Sulfate (Morphine Inj) 2 mg IV.PUSH Q3H PRN PRN Reason: PAIN 6-10;IF UNABLE TO TAKE PO Naloxone HCl (Narcan Inj) 0.4 mg IV.PUSH UNSCH PRN PRN Reason: SEE LABEL COMMENTS Nitroglycerin (Nitrostat Sl) 0.4 mg SL Q5M PRN PRN Reason: CHEST PAIN Ondansetron HCl (Zofran Inj) 4 mg IV.PUSH Q6H PRN PRN Reason: NAUSEA OR VOMITING Ondansetron HCl (Zofran Inj) 4 mg IV.PUSH UNSCH PRN PRN Reason: NAUSEA OR VOMITING Oxycodone HCl (Roxicodone) 10 mg PO Q4H PRN PRN Reason: Pain 6-10 Oxycodone HCl (Roxicodone) 5 mg PO Q4H PRN PRN Reason: Pain 1-5 Oxycodone/Acetaminophen (Percocet 5/325 Mg) 1 tab PO Q6H PRN PRN Reason: PAIN SCALE 3 TO 5 Pantoprazole Sodium (Protonix Inj) 40 mg IV.PUSH Q24H [facility] Last Admin: 01/04/18 07:50 Dose: 40 mg Pantoprazole Sodium (Protonix) 40 mg PO DAILY [facility] Last Admin: 01/04/18 10:03 Dose: 40 mg Senna/Docusate Sodium (America-Colace) 1 tab PO BID [facility] Last Admin: 01/04/18 22:27 Dose: 1 tab Sennosides (Senokot) 17.2 mg PO Q12H PRN PRN Reason: Moderate Constipation Sevelamer Carbonate (Renvela) 800 mg PO TID [facility] Last Admin: 01/04/18 17:54 Dose: 800 mg Sodium Chloride (Ns Flush) 2 ml IV.FLUSH UNSCH PRN PRN Reason: FLUSH AFTER USING IV ACCESS Sodium Chloride (Ns Flush) 5 ml IV.FLUSH PRN PRN PRN Reason: flush each lumen during HD Torsemide (Demadex) 20 mg PO DAILY [facility] Last Admin: 01/04/18 15:27 Dose: 20 mg Allergies Allergy/AdvReac Type Severity Reaction Status Date / Time atorvastatin [From Lipitor] Allergy Rash, Verified 01/04/18 02:24 Generalized cefuroxime [From Ceftin] Allergy Rash, Verified 01/04/18 02:24 Generalized Sulfa (Sulfonamide Allergy Rash, Verified 01/04/18 02:24 Antibiotics) Generalized Home Medications Medication Instructions Recorded Confirmed Type carvedilol [Coreg] 25 mg PO BID 01/04/18 01/04/18 History escitalopram oxalate [Lexapro] 20 mg PO DAILY 01/04/18 01/04/18 History gabapentin [Neurontin] 400 mg PO BID 01/04/18 01/04/18 History levothyroxine [Synthroid] 150 mcg PO DAILY 01/04/18 01/04/18 History megestrol [Megace ES] 625 mg PO DAILY 01/04/18 01/04/18 History omeprazole magnesium [Prilosec] 40 mg PO DAILY 01/04/18 01/04/18 History sevelamer carbonate [Renvela] 800 mg PO TID 01/04/18 01/04/18 History torsemide [Demadex] 20 mg PO DAILY 01/04/18 01/04/18 History Exam Vital signs: Vital Signs 01/04/18 02:26 01/04/18 03:30 01/04/18 04:30 Temperature 98.2 F Pulse Rate 78 78 86 Respiratory Rate 18 18 Blood Pressure 187/79 H 175/78 H 201/90 H Pulse Oximetry 99 96 01/04/18 05:30 01/04/18 05:58 01/04/18 08:00 Temperature 98 F Pulse Rate 76 80 73 Respiratory Rate 18 16 18 Blood Pressure 182/80 H 151/66 H 111/55 L Pulse Oximetry 96 98 98 01/04/18 12:00 01/04/18 16:00 Temperature 98.1 F 98 F Pulse Rate 77 60 Respiratory Rate 17 13 Blood Pressure 151/70 H 117/56 L Pulse Oximetry 94 L 97 Intake & Output 01/04/18 01/04/18 01/05/18 06:59 18:59 06:59 Intake Total 1720 / 1720 Output Total 200 / 200 Balance 1520 / 1520 Weight 80 kg 64.5 kg Intake: IV 1000 / 1000 NS Inj 1,000 ML @ 100 mls/hr IV 1000 / 1000 .CONT .Q10H [facility] Rx#:[id number] Oral 720 / 720 Output: Urine 200 / 200 Other: # Voids 1 Narrative: A&O x 3 Bruising to both eyes consistent with sanz sign, but no fracture Cn II-XII intact Motor 5/5 UE/LE except RUE ortho splint at wrist and forearm - Constitutional no acute distress Results - Laboratory Findings CBC and BMP: 01/04/18 07:10 01/04/18 07:10 Abnormal lab findings: Abnormal Labs 01/04/18 01/04/18 01/04/18 06:48 07:10 07:10 RDW 19.5 H Power % (Auto) 9.4 H BUN 23 H Creatinine 3.95 H Estimated GFR 11 L POC Glucose 138 H Random Glucose 146 H Assessment and Plan - Plan 67yoF who fell while on anticoagulation, due to history of poor vision after previous strokes, with ESRD on dialysis MWF. Plan: Head CT with scattered tSAH and IPH, plenty of atrophy and good exam. Neuro checks q2. Keppra 500mg x7d She is at mildly elevated risk for delayed chronic SDH given her anticoagulation status and atrophy
[2018-01-05] MEDS: Levothyroxine 75 MCG Tablet PO SCH (06:20)
[2018-01-05] MEDS: Pantoprazole Inj 40 MG Vial IV.PUSH SCH (06:22)
[2018-01-05] MEDS: Sod Chloride 0.9% Inj 1,000 ML IV.CONT SCH ×2 (08:26→13:02)
[2018-01-05] MEDS: Torsemide 20 MG Tablet PO SCH (08:30)
[2018-01-05] MEDS: Gabapentin 400 MG Capsule PO SCH (08:30)
[2018-01-05] MEDS: Megestrol Acetate Liq 400 MG/10 ML UDC PO SCH (08:30)
[2018-01-05] MEDS: Senna/Docusate Sodium 8.6/50 MG Tablet PO SCH (08:30)
--- NOTE | 2018-01-05 10:46 | P.PNNP ---
Subjective Interval history: Patient feeling okay right eye bruising Physical Exam Vital signs: Vital Signs 01/04/18 12:00 01/04/18 16:00 01/04/18 20:00 Temperature 98.1 F 98 F 98.6 F Pulse Rate 77 60 60 Respiratory Rate 17 13 12 Blood Pressure 151/70 H 117/56 L 155/67 H Pulse Oximetry 94 L 97 99 01/05/18 00:00 01/05/18 04:00 01/05/18 08:30 Temperature 98.3 F 98.4 F Pulse Rate 58 L 60 Respiratory Rate 14 17 Blood Pressure 98/51 L 105/55 L Pulse Oximetry 96 93 L 94 L Intake & Output 01/04/18 01/05/18 01/05/18 18:59 06:59 18:59 Intake Total 1720 / 1720 200 / 200 1000 / 1000 Output Total 200 / 200 Balance 1520 / 1520 200 / 200 1000 / 1000 Weight 64.5 kg 69.2 kg Intake: IV 1000 / 1000 1000 / 1000 NS Inj 1,000 ML @ 100 mls/hr IV 1000 / 1000 1000 / 1000 .CONT .Q10H [facility] Rx#:[id number] Oral 720 / 720 200 / 200 Output: Urine 200 / 200 Other: # Voids 1 - Constitutional no acute distress - Routine HEENT Exam Eye: Present: EOMI (Right eye bruising) - Routine Neck Exam Present: supple - Routine Respiratory Exam Present: CTA bilaterally - Routine Extremities Exam Present: pulses intact - Routine Neurological Exam Present: alert Assessment and Plan - Assessment (1) End-stage renal disease on hemodialysis Code(s): N18.6 - End stage renal disease; Z99.2 - Dependence on renal dialysis Status: Acute (2) Traumatic cerebral intraparenchymal hemorrhage Code(s): S06.369A - Traumatic hemorrhage of cerebrum, unspecified, with loss of consciousness of unspecified duration, initial encounter Status: Acute Qualifiers: Encounter type: initial encounter Laterality: unspecified laterality Loss of consciousness presence/duration: without LOC Qualified Code(s): S06.360A - Traumatic hemorrhage of cerebrum, unspecified, without loss of consciousness, initial encounter (3) Subarachnoid hemorrhage Code(s): I60.9 - Nontraumatic subarachnoid hemorrhage, unspecified Status: Acute (4) Closed fracture of right wrist Code(s): S62.101A - Fracture of unspecified carpal bone, right wrist, initial encounter for closed fracture Status: Acute Qualifiers: Encounter type: initial encounter Qualified Code(s): S62.101A - Fracture of unspecified carpal bone, right wrist, initial encounter for closed fracture - Plan Hemodialysis is planned for tomorrow continue Monday, Monday and Monday schedule Monitor intake and output Hemodialysis today Patient is being followed by trauma surgery and neurosurgery Discussed with staff
--- NOTE | 2018-01-05 10:57 | P.PNCC ---
Subjective Brief History: This 67-year-old female was transferred to [facility], where she was initially admitted to the ER because she fell out of bed in the rehab center. I was requested to accept the patient, who was readily accommodated. The patient arrives about 8 hours later to the emergency room and is noted to be awake and alert, with mild headache and wrist pain. The patient states that [facility] and has had pain since. She also stated that she could barely see anything and so it was easy to trip, and she had multiple falls in the recent past. The patient is now being admitted to our department. Initial workup from [place] was reviewed by emergency room physician and by myself. It should be noted that patient was hypocoagulable with INR of 2 and is a chronic dialysis patient with clearly impaired platelet function She received FFP at [facility] Depending on patient's appearance she may need to DDAVP and FFP to correct this further Additional studies were performed here and workup reveals 1. Bilateral frontal subarachnoid bleeding and a number of old lacunar infarcts over the basal ganglia and thalamus. 2. Old partially healed right wrist fracture involving the ulna and radius Neurosurgery was consulted to evaluate the patient Remains awake alert and oriented however slightly somnolent 24 Hour Review/Hospital Course: 01/05/2018 Neurologically patient is unchanged. She is awake alert oriented and slightly somnolent [place] Coma Scale about 14 CN II through XII are intact Pupils equally reactive and extraocular muscles are intact Patient is full range of motion and motorically and sensory she is intact Deep tendon reflexes are normal Apparently yesterday evening patient had one episode when she was more's somnolent than she should have been according to the nurse and she underwent repeat CT scan of the brain which did not reveal any change except resolving injury At this point patient can be transferred back to the rehab unit she came from for further care and does not require stay at our institution anymore I discussed this with case management the patient should be transferred back today Objective Vital Signs / I&O: Vital Signs 01/04/18 12:00 01/04/18 16:00 01/04/18 20:00 Temperature 98.1 F 98 F 98.6 F Pulse Rate 77 60 60 Respiratory Rate 17 13 12 Blood Pressure 151/70 H 117/56 L 155/67 H Pulse Oximetry 94 L 97 99 01/05/18 00:00 01/05/18 04:00 01/05/18 08:00 Temperature 98.3 F 98.4 F Pulse Rate 58 L 60 60 Respiratory Rate 14 17 Blood Pressure 98/51 L 105/55 L Pulse Oximetry 96 93 L 01/05/18 08:30 Temperature Pulse Rate Respiratory Rate Blood Pressure Pulse Oximetry 94 L Intake & Output 01/04/18 01/05/18 01/05/18 18:59 06:59 18:59 Intake Total 1720 / 1720 200 / 200 1000 / 1000 Output Total 200 / 200 Balance 1520 / 1520 200 / 200 1000 / 1000 Weight 64.5 kg 69.2 kg Intake: IV 1000 / 1000 1000 / 1000 NS Inj 1,000 ML @ 100 mls/hr IV 1000 / 1000 1000 / 1000 .CONT .Q10H [facility] Rx#:[id number] Oral 720 / 720 200 / 200 Output: Urine 200 / 200 Other: # Voids 1 Result Diagrams: 01/04/18 07:10 01/04/18 07:10 Imaging: Impressions Carotid Doppler Study 01/04/18 00:00 CONCLUSION: 1. Right Internal Carotid Artery: Bulky calcified plaque with mild, less than 50%, stenosis. 2. Left Internal Carotid Artery: Bulky calcified plaque with moderate, 50-69%, stenosis based on grayscale imaging. Head CT 01/04/18 19:32 CONCLUSION: 1. Small amount of subarachnoid hemorrhage over the left frontal convexity is basically stable. 2. Punctate area of increased density over the right lateral ventricle is less prominent when compared to the prior exam may represent resolving parenchymal hemorrhage. 3. Stable chronic changes with bioccipital infarcts, right greater than left, old right thalamic infarct and scattered areas of deep white matter tracts small vessel ischemic demyelination. Stable, symmetric cortical atrophy. . 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 She is awake alert oriented and slightly somnolent [place] Coma Scale about 14 CN II through XII are intact Pupils equally reactive and extraocular muscles are intact Patient is full range of motion and motorically and sensory she is intact Deep tendon reflexes are normal Hemodynamic/Cardiac: Hemodynamically patient remained stable slightly hypertensive Pulmonary/Respiratory: Bilateral good breath sounds good pulmonary function Abdomen/GI Nutrition: Abdomen soft active bowel sounds tolerating diet well Renal/I&O: Renal function is per nephrology patient is a chronic dialysis patient Assessment and Plan Attestation: DC [facility] Critical care 32 minutes
--- NOTE | 2018-01-05 12:42 | P.PNNS ---
Subjective Interval history: Planning for discharge today. Exam stable Physical Exam Vital signs: Vital Signs 01/04/18 16:00 01/04/18 20:00 01/05/18 00:00 Temperature 98 F 98.6 F 98.3 F Pulse Rate 60 60 58 L Respiratory Rate 13 12 14 Blood Pressure 117/56 L 155/67 H 98/51 L Pulse Oximetry 97 99 96 01/05/18 04:00 01/05/18 08:00 01/05/18 08:30 Temperature 98.4 F Pulse Rate 60 60 Respiratory Rate 17 Blood Pressure 105/55 L Pulse Oximetry 93 L 94 L Intake & Output 01/04/18 01/05/18 01/05/18 18:59 06:59 18:59 Intake Total 1720 / 1720 200 / 200 1000 / 1000 Output Total 200 / 200 Balance 1520 / 1520 200 / 200 1000 / 1000 Weight 64.5 kg 69.2 kg Intake: IV 1000 / 1000 1000 / 1000 NS Inj 1,000 ML @ 100 mls/hr IV 1000 / 1000 1000 / 1000 .CONT .Q10H DARRON Rx#:[id number] Oral 720 / 720 200 / 200 Output: Urine 200 / 200 Other: # Voids 1 Narrative: Patient was at dialysis when attempted exam. 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 Plan: Head CT with scattered tSAH and IPH, plenty of atrophy and good exam. Neuro checks q2. Keppra 500mg x7d She is at mildly elevated risk for delayed chronic SDH given her anticoagulation status and atrophy Recommend follow-up in 2-[address] with [facility] to determine duration off anticoagulation if necessary to resume.
[2018-01-05] MEDS: Carvedilol 12.5 MG Tablet PO SCH (12:53)
--- NOTE | 2018-01-06 16:05 | P.DS ---
Date of admission: 01/04/18 05:13 Primary care physician: UNKNOWN Brief History from admission: S/P Fall DS: Summary Hospital Course: This 67-year-old female was transferred to [facility], where she was initially admitted to the ER because she fell out of bed in the rehab center. I was requested to accept the patient, who was readily accommodated. The patient arrives about 8 hours later to the emergency room and is noted to be awake and alert, with mild headache and wrist pain. The patient states that she fell on the bed in the residential and has had pain since. She also stated that she could barely see anything and so it was easy to trip, and she had multiple falls in the recent past. The patient is now being admitted to our department. Initial workup from [place] was reviewed by emergency room physician and by myself. It should be noted that patient was hypocoagulable with INR of 2 and is a chronic dialysis patient with clearly impaired platelet function She received FFP at [facility] Depending on patient's appearance she may need to DDAVP and FFP to correct this further Additional studies were performed here and workup reveals 1. Bilateral frontal subarachnoid bleeding and a number of old lacunar infarcts over the basal ganglia and thalamus. 2. Old partially healed right wrist fracture involving the ulna and radius Neurosurgery was consulted to evaluate the patient Remains awake alert and oriented however slightly somnolent 24 Hour Review/Hospital Course: 01/05/2018 Neurologically patient is unchanged. She is awake alert oriented and slightly somnolent [place] Coma Scale about 14 CN II through XII are intact Pupils equally reactive and extraocular muscles are intact Patient is full range of motion and motorically and sensory she is intact Deep tendon reflexes are normal Apparently yesterday evening patient had one episode when she was more's somnolent than she should have been according to the nurse and she underwent repeat CT scan of the brain which did not reveal any change except resolving injury At this point patient can be transferred back to the rehab unit she came from for further care and does not require stay at our institution anymore I discussed this with case management the patient should be transferred back today INJURIES: SAH IVH RIGHT radius/ulna fx (old, non-op) PMHx: CAD, COPD, DM, CVA, HTN, Hypothyroidism, CABG, Coronary stent, ESRD on dialysis M-W- SAH, IVH Neurosurgery consulted Nonoperative management No need for Keppra per NS Avoid second head injury Postconcussive education RIGHT radius/ulna fx Orthopedics consulted Nonoperative management- fx is 2 months old F/U with Dr Jay as outpatient ESRD Nephrology consulted Received hemodialysis Fri F/U with PCP in 1 week 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 D/W CM. Collaborating Trauma MD agrees with plan. Case management consulted to assist with discharge planning. Patient is clear from Trauma surgery to safely discharge to SNF. - Time Spent with Patient Total time spent providing and/or coordinating discharge services: Greater than 30 minutes Exam Vital signs: Vital Signs 01/05/18 16:00 Temperature 98.4 F Pulse Rate 60 Respiratory Rate 17 Blood Pressure 123/71 Pulse Oximetry 100 Intake & Output 01/05/18 01/06/18 01/06/18 18:59 06:59 18:59 Intake Total 1000 / 1000 Output Total 3000 / 3000 Balance -1999 / -1999 Intake: IV 1000 / 1000 NS Inj 1,000 ML @ 100 mls/hr IV 1000 / 1000 .CONT .Q10H [facility] Rx#:[id number] Output: Hemodialysis Amount 3000 / 3000 Narrative: GENERAL: 67 year old well-nourished female lying in bed. SKIN: Warm and dry. BILAT periorbital edema noted. HEAD:Normocephalic. ENT: No nasal bleeding or discharge. Mucous membranes pink and moist. NECK: Trachea midline. No JVD. CARDIOVASCULAR: Regular rate and rhythm. RESPIRATORY: No accessory muscle use. Clear to auscultation. Breath sounds equal bilaterally. GASTROINTESTINAL: Abdomen soft, non-tender, nondistended. + BS MUSCULOSKELETAL: Extremities without cyanosis, or edema. MAEW, + perfused NEUROLOGICAL: Lethargic, oriented x3. Normal speech. Results Procedures completed during hospitalization: NA - Impressions ITS Impressions Carotid Doppler Study 01/04/18 00:00 CONCLUSION: 1. Right Internal Carotid Artery: Bulky calcified plaque with mild, less than 50%, stenosis. 2. Left Internal Carotid Artery: Bulky calcified plaque with moderate, 50-69%, stenosis based on grayscale imaging. Chest X-Ray 01/04/18 02:44 CONCLUSION: No acute cardiopulmonary process. Wrist X-Ray 01/04/18 02:44 CONCLUSION: Distal radial and ulnar fractures. Head CT 01/04/18 19:32 CONCLUSION: 1. Small amount of subarachnoid hemorrhage over the left frontal convexity is basically stable. 2. Punctate area of increased density over the right lateral ventricle is less prominent when compared to the prior exam may represent resolving parenchymal hemorrhage. 3. Stable chronic changes with bioccipital infarcts, right greater than left, old right thalamic infarct and scattered areas of deep white matter tracts small vessel ischemic demyelination. Stable, symmetric cortical atrophy. . Discharge Plan - Discharge Disposition Patient Disposition: 04 [facility] - Discharge Condition Condition: Stable - Discharge Order Discharge Orders: Discharge Order (Routine); Ordered 01/05/18 Ordered By: Constance Chamberlain - Physicians Team Primary Care Provider: UNKNOWN, Attending Provider: Sandra Jacinto Other Providers: Papi Sweeney MD ; Abe Morales MD ; Systems, [employer] [facility] ; Eugene Morales MD ; Bethany Lima ARNP ; Rasta Hernandez MD ; Yue Limon MD ; Sandra Jacinto MD ; Constance Chamberlain ARNP ; Robert Saeed MD ; Grayson Callaway MD ; Kolby Dallas MD ; Mariah Ayala MD
== END 2018-01-05 17:20 ==
LOC: NEPE 02:19 → NEDA 05:13 → N03 08:00
PROVIDERS: ADMIT Surgery; ATTEND Surgery